=== PATIENT | male | born 1990 | race Caucasian/White ===

== ENCOUNTER → 2017-01-16 | Emergency (ER) | payer OTHER ==
[2017-01-16 17:49] VITALS: BP 127/81; PULSE 79; TEMP 97; BMI 25.1
== END | disposition left against medical advice (07) ==
LOC: JERFT 17:23
DX: Z53.21 Procedure and treatment not carried out due to patient leaving prior to being seen by health care provider (principal)
CPT/HCPCS: 99281-25

== ENCOUNTER 2021-06-11 15:02 | Emergency (ER) | payer OTHER ==
[2021-06-11 15:13] VITALS: TEMP 98; BMI 25.1
[2021-06-11] MEDS ORDERED: SODIUM CHLORIDE 0.9% 500 ML INFUS.BAG IV ONE (15:47)
[2021-06-11] MEDS ORDERED: ONDANSETRON 4 MG/2 ML VIAL IVPUSH ONE (15:47)
[2021-06-11] MEDS ORDERED: ONDANSETRON 4 MG/2 ML VIAL ONE (16:02)
[2021-06-11 16:39] LABS: BASO % 0.1 % (0-2.0); HEMATOCRIT 43.5 % (35.4-49); HEMOGLOBIN 15.4 GM/dL (11.7-16.9); LYMPH % 7.7 % (8-40); MCH 32.5 pg (25.7-33.7); MCHC 35.3 g/dl (32.0-35.9); MEAN PLT VOLUME 7.6 fl (7.5-11.1); MONO % 10.3 % (3.8-10.2); NEUT % 81.9 % (42.8-82.8); PLATELET COUNT 226 10^3/uL (134-434); RBC 4.73 M/mm3 (4.00-5.60); RDW 12.6 % (11.9-15.9); WHITE BLOOD COUNT 5.7 K/mm3 (4.0-10.0)
[2021-06-11 16:56] LABS: CALCIUM 9.4 mg/dL (8.5-10.1)
[2021-06-11 16:57] LABS: ALBUMIN 4.2 g/dl (3.4-5.0); BLOOD UREA NITROGEN 20.3 mg/dL (7-18)
[2021-06-11 17:00] LABS: CREATININE 0.8 mg/dL (0.55-1.3)
[2021-06-11 17:01] LABS: TOT PROT 7.3 g/dl (6.4-8.2)
[2021-06-11 17:02] LABS: BILIRUBIN,TOTAL 0.8 mg/dL (0.2-1)
[2021-06-11 17:30] VITALS: BP 119/68; PULSE 73
== END 2021-06-11 17:30 | disposition home or self-care (01) ==
LOC: JER 15:02
PROC: 3E033GC Introduction of Other Therapeutic Substance into Peripheral Vein, Percutaneous Approach (ICD-10-PCS; principal; 2021-06-11)
DX: R11.2 Nausea with vomiting, unspecified (principal)
CPT/HCPCS: 36415; 80053; 85025; 99284-25

== ENCOUNTER 2024-11-30 14:46 | Emergency (ER) | payer OTHER ==
[2024-11-30 14:50] VITALS: TEMP 98.4; BMI 24.3
[2024-11-30] MEDS: SODIUM CHLORIDE 0.9% 500 ML INFUS.BAG IV ONE (16:16)
[2024-11-30 16:30] LABS: ABSOLUTE IMMATURE GRANULOCYTES 0.04 x10^3/uL (0.0-0.031); BASOPHILS # 0.02 x10^3/uL (0.01-0.08); EOSINOPHIL % 0.1 % (0.8-7.0); EOSINOPHILS # 0.01 x10^3/uL (0.04-0.54); MCHC 33.9 g/dl (32.3-36.5); MEAN CELL VOLUME 91.4 fl (79.0-92.2); MEAN PLT VOLUME 9.5 fl (9.4-12.4); MONOCYTE # 0.38 x10^3/uL (0.30-0.82); MONOCYTE % 3.6 % (5.3-12.2); RDW 11.6 % (12.0-15.6)
[2024-11-30 16:38] LABS: INR 1.22 (0.83-1.09); PROTHROMBIN TIME (PATIENT) 13.3 SEC (9.7-13.0)
[2024-11-30 16:41] LABS: ACTIVATED PTT 27.1 SECONDS (25.2-36.5)
[2024-11-30 17:07] LABS: GLUCOSE,RANDOM 90.0 mg/dL (74-106); TOT PROT 8.0 g/dl (6.4-8.2)
[2024-11-30 17:08] LABS: CO2 28.0 mmol/L (21-32)
[2024-11-30 17:10] LABS: ALK PHOS 68.0 U/L (40-150)
[2024-11-30 17:13] LABS: CREATININE 0.84 mg/dL (0.55-1.3); SGOT/AST 34.0 U/L (5-34); SGPT/ALT 36.0 U/L (0-55)
[2024-11-30 17:29] LABS: HCV DIAGNOSTIC IN-HOUSE W/RFLX NON-REACTIVE (NONREACTIVE); HIV INTERPRETATION NEGATIVE (NEGATIVE)
[2024-11-30 18:26] VITALS: BP 121/64; PULSE 78; RESP 16
== END 2024-11-30 18:26 | disposition home or self-care (01) ==
LOC: JER 14:46
DX: R55 Syncope and collapse (principal); R53.1 Weakness; R05.9 Cough, unspecified; R11.2 Nausea with vomiting, unspecified; R42 Dizziness and giddiness
CPT/HCPCS: 36415; 71045-TC-FY; 80053; 82962; 83735; 84484; 85025; 85610; 85730; 86803; 86850; 86900; 86901; 87389; 93005; 93010; 99285-25